=== PATIENT | male | born 1975 | race Caucasian/White ===

== ENCOUNTER 2021-04-05 10:40 | Outpatient (CLI) | payer OTHER, SELFPAY ==
--- NOTE | ~2021-04-05 | XR_ITS ---
XR chest 2V DATE: 04/05/2021 10:57 INDICATION: Confusion, brain dog, weakness TECHNIQUE: PA and lateral views COMPARISON: None FINDINGS: Normal heart size. No hilar or mediastinal enlargement. No pulmonary infiltrate or consolid ation, pleural effusion or pulmonary vascular congestion or pneumothorax. IMPRESSION: No active cardiopulmonary disease Reviewed, dictated and finalized at location A.
== END 2021-04-05 10:41 | disposition home or self-care (01) ==
LOC: CHSIMG 10:45
PROVIDERS: PCP Internal Medicine; Visit Provider Internal Medicine
DX: Z00.00 Encounter for general adult medical examination without abnormal findings (principal); R53.83 Other fatigue
CPT/HCPCS: 71046

== ENCOUNTER 2021-04-06 10:15 | Outpatient (CLI) | payer OTHER, SELFPAY ==
--- NOTE | ~2021-04-06 | MR_ITS ---
EXAMINATION: MR brain/brain stem wo con DATE: 04/06/2021 10:49 INDICATION: Headache. Cognitive change. TECHNIQUE: Magnetic resonance imaging (MRI) of the brain and brainstem was performed without intraven ous contrast. Sequences included sagittal and axial T1-weighted FSE, axial diffusion-weighted FS EPI, axial T2*-weighted GRE, axial T2-weighted FLAIR Propeller, and axial T2-weighted Propeller. Apparent diffusion coefficient (ADC) maps were created. COMPARISON: None. FINDINGS: There is no intracranial hemorrhage, acute infarction, or abnormal intracranial mass lesion . The ventricles are normal in size. There is mild mucosal thickening in left maxillary sinus. The ma stoid air cells are normal. The orbits are normal. IMPRESSION: 1. Normal brain. Reviewed, dictated and finalized at location A. IMPRESSION: 1. Normal brain.
== END 2021-04-06 10:16 | disposition home or self-care (01) ==
LOC: CHSIMG 10:17
PROVIDERS: PCP Internal Medicine; Visit Provider Internal Medicine
DX: R51.9 Headache, unspecified (principal); R41.89 Other symptoms and signs involving cognitive functions and awareness
CPT/HCPCS: 70551

== ENCOUNTER 2024-01-19 06:53 | Emergency (ER) | payer BC, SELFPAY ==
[2024-01-19] VITALS (16 sets, daily range): BP systolic 103–158; BP diastolic 63–98; PULSE 66–86; RESP 8–27; TEMP 36; O2SAT 93–100
--- NOTE | ~2024-01-19 | XR_ITS ---
EXAMINATION: XR chest 2V DATE: 01/19/2024 07:28 INDICATION: Left chest pain. TECHNIQUE: Frontal and lateral views of the chest were obtained on 3 radiographs. COMPARISON: None. FINDINGS: There is no pneumonia, pleural effusion, or pneumothorax. The heart size is normal. IMPRESSION: 1. No acute cardiopulmonary disease. Reviewed, dictated and finalized at location E.
--- NOTE | 2024-01-19 07:10 | ECG_ITS ---
SEE SCANNED COPY FOR CONFIRMED REPORT MTDD
--- NOTE | 2024-01-19 07:13 | ED.CHESTPAIN ---
HPI - Chest Pain General Chief Complaint: Chest Pain Stated Complaint: chest pain Time Seen by Provider: 01/19/24 07:10 Source: patient Mode of arrival: ambulatory Limitations: no limitations History of Present Illness HPI narrative: 48 year old male presents to the Emergency Department complaining of substernal chest pain. Onset when awoke this morning. Pain non-radiating. Denies shortness of breath, nausea or diaphoresis. Patient states he had a similar episode 2 days ago when he was walking around hunting mushrooms. Denies history of cardiac problems. Denies Family History of heart disease. Non-smoker, but chews tobacco. Denies any use of stimulant substances or illicit drugs. MD complaint: chest pain Onset (ago): minute(s) Timing of current episode: episodic Prior episodes: Yes (once 2 days ago) Onset: during rest (today) and during exertion (2 days ago) Pain location: substernal Pain radiation: none Severity: moderate Quality: sharp Relieving factors: nothing Exacerbating factors: nothing (today) and exertion (2 days ago) Treatment prior to arrival: none Risk Factors Coronary artery disease risk factors: none Thoracic aortic dissection risk factors: none Related Data Home Medications Medication Instructions Recorded Confirmed buprenorphine 8 mg-naloxone 2 mg 1 film sublingual BID 01/19/24 01/19/24 sublingual film Allergies Allergy/AdvReac Type Severity Reaction Status Date / Time No Known Allergies Allergy Verified 01/19/24 07:08 Review of Systems Review of Systems: All systems reviewed & are unremarkable except as noted in HPI and below Constitutional: Constitutional: Reports as per HPI and Reports no additional constitutional complaints Eyes: Eyes: Reports as per HPI and Reports no additional eye complaints ENT: Reports system reviewed and no additional complaints, except as documented Cardiovascular: Cardiovascular: Reports as per HPI and Reports chest pain Respiratory: Respiratory: Reports as per HPI, Reports no additional respiratory complaints and Denies dyspnea Gastrointestinal: Gastrointestinal: Reports as per HPI, Reports no additional gastrointestinal complaints, Denies nausea and Denies vomiting Genitourinary: Genitourinary: Reports no additional male genitourinary complaints Musculoskeletal: Musculoskeletal: Reports no additional musculoskeletal complaints Integumentary/Breasts: Skin/Breast: Reports system reviewed and no additional complaints, except as docu Neurologic: Reports system reviewed and no additional complaints, except as documented Psychiatric: Psychiatric: Reports no additional psychiatric complaints Endocrine: Endocrine: Reports no additional endocrine complaints Hematologic/Lymphatic: Hematologic/Lymphatic: Reports no additional hematologic/lymphatic complaints Allergic/Immunologic: Allergic/Immunologic: Reports no additional allergic/immunologic complaints Exam Const: General: healthy appearing, no acute distress and alert Nutritional Appearance: well nourished Orientation/consciousness: patient oriented x3 Limitations: no limitations HENMT: Head: normal to inspection Ears: external ears normal Face/Nose/Sinus: Normal external nose present Face and sinus: normal facial exam Mouth: Yes Normal oral and palatal mucosa present Eyes: Conjunctivae: conjunctivae normal Pupils: Equal, round and reactive pupils present EOM: EOMs intact bilaterally Direct Ophthalmoscopy: no photophobia Neck: Neck: normal visual inspection Chest: Chest palpation & inspection: normal inspection of the chest and no tenderness Resp: Effort & Inspection: normal respiratory effort Auscultation: clear to auscultation bilaterally Cardio: Rate: regular rate Rhythm: regular rhythm Heart sounds: no murmurs Other: PVC's GI: Inspection: non-distended GI Palp: Yes Soft to palpation, No Tenderness to palpation present (GI) and No Guarding due to palpation present (GI) Auscu
[2024-01-19] MEDS: ASPIRIN 81 MG CHEWABLE TABLET 324 MG PO (07:26)
--- NOTE | 2024-01-19 07:30 | PC.NURSE ---
PT RETURNS FROM CT, REPORTS HE HAS BEEN CONSTIPATED FOR THE PAST 4-5 DAYS. PT REPORTS HE IS CURRENTLY PAIN FREE. DAUGHTER IS AT BEDSIDE, PT IS LAUGHING AND TALKING WITH HER. WILL CONTINUE TO MONITOR.
[2024-01-19 07:38] LABS: Basophils Absolute Auto 0.02 K/mm3 (0.00-0.10); Basophils Percent Auto 0.4 % (0.0-1.0); Eosinophils Absolute Auto 0.06 K/mm3 (0.02-0.50); Eosinophils Percent Auto 1.1 % (1.0-6.0); Hematocrit 41.3 % (40.0-54.0); Hemoglobin 13.5 g/dL (14.0-18.0); Immature Granulocyte Absolute 0.01 K/mm3 (0.00-0.00); Immature Granulocyte Percent A 0.2 % (0.0-0.0); Lymphocytes Absolute Auto 2.58 K/mm3 (1.10-4.50); Lymphocytes Percent Auto 47.6 % (18.0-42.0); Mean Corpuscular HGB Conc 32.7 g/dL (32-36); Mean Corpuscular Hemoglobin 28.7 pg (27.0-31.0); Mean Corpuscular Volume 87.9 fL (78.0-102.0); Mean Platelet Volume 11.3 fl (8.7-11.0); Monocytes Absolute Auto 0.48 K/mm3 (0.10-0.90); Monocytes Percent Auto 8.9 % (2.0-11.0); Neutrophils Absolute Auto 2.27 K/mm3 (1.70-7.20); Neutrophils Percent Auto 41.8 % (50.0-70.0); Platelet Count Result 191 K/mm3 (150-420); Red Cell Distribution Width 12.4 % (11.6-14.4); White Blood Count 5.4 K/mm3 (4.8-10.8)
[2024-01-19 07:50] LABS: D Dimer 0.19 mg/L (0.19-0.50)
[2024-01-19 07:54] LABS: Alanine Aminotransferase 28 U/L (16-63); Albumin Level 3.8 g/dL (3.4-5.0); Alkaline Phosphatase 61 U/L (46-116); Anion Gap 5 mmol/L (4-12); Aspartate Amino Transferase 17 U/L (15-37); Bilirubin,Total 0.5 mg/dL (0.00-1.00); Blood Urea Nitrogen 8 mg/dL (7-18); Calcium 8.2 mg/dL (8.5-10.1); Carbon Dioxide 34 mmol/L (21-32); Chloride 104 mmol/L (98-108); Estimated CRCL calculation 99 ml/min; Estimated Glomerular Filt Rate > 60; Glucose 114 mg/dL (70-99); Magnesium 2.1 mg/dL (1.8-2.4); Osmolality Calculated 295 mOsm/kg (285-295); Potassium 4.1 mmol/L (3.5-5.1); Sodium 143 mmol/L (136-145); Total Protein 7.5 g/dL (6.4-8.2); Troponin I 5.5 ng/L (0.00-60.4)
--- NOTE | 2024-01-19 08:20 | PC.NURSE ---
pt is currently resting on stretcher with daughter at bedside. warm blanket provided. pt denies any other episodes of chest pain at this time. vss per monitor. will continue to monitor. erp is notified that all results are completed.
--- NOTE | 2024-01-19 10:16 | PC.NURSE ---
DAUGHTER HAS LEFT, PT IS AWAITING REDRAW OF TROPONIN. ORANGE JUICE PROVIDED. PT DENIES ANY OTHER NEEDS OR COMPLAINTS. PT DENIES ANY MORE CHEST PAIN OCCURANCES. NAD NOTED. WILL CONTINUE TO MONITOR.
[2024-01-19 11:00] LABS: Troponin I 5.9 ng/L (0.00-60.4)
== END 2024-01-19 11:30 | disposition home or self-care (01) ==
PROVIDERS: Emergency Provider Emergency Medicine; PCP Internal Medicine
DX: R07.9 Chest pain, unspecified (principal)
CPT/HCPCS: 36415; 71046; 80053; 83735; 84484; 85025; 85380; 93005; 99284; A9270

== ENCOUNTER 2024-02-01 09:41 | Outpatient (CLI) | payer BC, SELFPAY ==
--- NOTE | 2024-02-01 09:45 | EST_ITS ---
Patient Info Name: Oscar Hobbs Age: 48 years : 1975 Gender: Male Ht: 71 in Wt: 228 lbs BSA: 2.31 m2 HR: 87 bpm BP: 104 / 81 mmHg Heart Rhythm: Sinus Rhythm Technical Quality: Good Exam Date: 02/01/2024 10:12 AM Exam Location: Echo Lab Patient Status: Outpatient Admit Date: 02/01/2024 Staff Ordering Physician: Cristino, Myrna Her APRN Attending Provider: Michelle, Myrna Her APRN Exam Type: CA stress test treadmill Study Info A treadmill exercise stress test was performed. History/Risk Factors Dyslipidemia: Yes Summary 1. 1. Negative Matthew exercise stress test for ischemic ST changes by ECG criteria. 2. 2. Good functional capacity, achieving 12 METs of workload. 3. 3. Hypertensive response to exercise. 4. 4. Appropriate HR response to exercise. 5. 5. Appropriate HR recovery at 1 minute post exercise. 6. 6. No imaging with stress testing. Protocol: Matthew Stress ECG Details Stage: REST Duration (min): 2 min : 37 sec Speed (mph): 0.0 Grade (%): 0 HR (bpm): 87 SBP (mmHg): 104 DBP (mmHg): 81 METS: --- Stage: REST Duration (min): 3 min : 34 sec Speed (mph): 0.0 Grade (%): 0 HR (bpm): 87 SBP (mmHg): 104 DBP (mmHg): 81 METS: --- Stage: STAGE 1 Duration (min): 1 min : 0 sec Speed (mph): 1.7 Grade (%): 10 HR (bpm): 85 SBP (mmHg): 104 DBP (mmHg): 81 METS: --- Stage: STAGE 1 Duration (min): 2 min : 0 sec Speed (mph): 1.7 Grade (%): 10 HR (bpm): 90 SBP (mmHg): 104 DBP (mmHg): 81 METS: --- Stage: STAGE 1 Duration (min): 3 min : 0 sec Speed (mph): 1.7 Grade (%): 10 HR (bpm): 105 SBP (mmHg): 188 DBP (mmHg): 75 METS: --- Stage: STAGE 2 Duration (min): 1 min : 0 sec Speed (mph): 2.5 Grade (%): 12 HR (bpm): 111 SBP (mmHg): 188 DBP (mmHg): 75 METS: --- Stage: STAGE 2 Duration (min): 2 min : 0 sec Speed (mph): 2.5 Grade (%): 12 HR (bpm): 117 SBP (mmHg): 188 DBP (mmHg): 75 METS: --- Stage: STAGE 2 Duration (min): 3 min : 0 sec Speed (mph): 2.5 Grade (%): 12 HR (bpm): 126 SBP (mmHg): 181 DBP (mmHg): 79 METS: --- Stage: STAGE 3 Duration (min): 1 min : 0 sec Speed (mph): 3.4 Grade (%): 14 HR (bpm): 138 SBP (mmHg): 181 DBP (mmHg): 79 METS: --- Stage: STAGE 3 Duration (min): 2 min : 0 sec Speed (mph): 3.4 Grade (%): 14 HR (bpm): 147 SBP (mmHg): 181 DBP (mmHg): 79 METS: --- Stage: STAGE 3 Duration (min): 3 min : 0 sec Speed (mph): 3.4 Grade (%): 14 HR (bpm): 153 SBP (mmHg): 181 DBP (mmHg): 79 METS: --- Stage: STAGE 4 Duration (min): 1 min : 0 sec Speed (mph): 4.2 Grade (%): 16 HR (bpm): 168 SBP (mmHg): 181 DBP (mmHg): 79 METS: --- Stage: STAGE 4 Duration (min): 1 min : 0 sec Speed (mph): 4.2 Grade (%): 16 HR (bpm): 168 SBP (mmHg): 181 DBP (mmHg): 79 METS: --- Stage
== END 2024-02-01 09:42 | disposition home or self-care (01) ==
LOC: CHSCARD 09:42
PROVIDERS: PCP Internal Medicine; Visit Provider Nurse Practitioner Family
DX: R07.9 Chest pain, unspecified (principal)
CPT/HCPCS: 93017

== ENCOUNTER 2024-02-03 08:02 | Outpatient (RCR) | payer BC, SELFPAY ==
--- NOTE | 2024-02-03 12:19 | OPREHPOC ---
Outpatient Therapy Plan of Care This is a Multidisciplinary Plan of Care that may contain components documented by all disciplines (PT, OT, and ST.) PT Problem 1 PT Problem #1 Knowledge Deficit PT Goal 1 Goal The patient will be independent in a home exercise program. Target Visit 4 PT Problem 2 PT Problem #2 Pain PT Goal 1 Goal The patient will report no greater than 2/10 left shoulder pain with daily activities. Target Visit 8 PT Problem 3 PT Problem #3 Impaired Functional Mobil PT Goal 1 Goal 1. The patient will demonstrate 20% or less self perceived disability per the Quick DASH report. 2. The patient will report ability to sleep without left shoulder pain. Target Visit 8 PT Problem 4 PT Problem #4 Impaired Strength PT Goal 1 Goal 1. The patient will demonstrate 4+/5 strength in the left shoulder to improve lifting ability. 2. The patient will demonstrate the ability to lift 20 lbs shoulder to overhead without left shoulder pain. Target Visit 8 PT Problem 5 PT Problem #5 Impaired Range of Motion PT Goal 1 Goal The patient will demonstrate left shoulder AROM equal to the right in all planes to improve ability to perform lifting and reaching necessary for daily and work tasks. Target Visit 8
--- NOTE | 2024-02-03 12:19 | PTOPEVAL1 ---
Assessment and note entered by Tanisha Corral, PT Evaluation Information Assessment Status Evaluation Diagnosis L shoulder pain Onset 01/21/24 Subjective Information Oscar Hobbs reports he thinks he injured his left shoulder when jumping onto a forklift about 3 weeks ago. Approximately one week later, he woke with left chest pain and he thought he was having issues with his heart so he went to the ER. He was cleared with issues with his heart. He followed up with his primary care physician who thought he had a rotator cuff injury and referred him to PT. He has pain in the left armpit and he has difficulty raising his left arm overhead. He also has difficulty washing his back and laying on his left side. 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 He is able to work full duty but has some difficulty completing the heavier labor with his job and using the left arm to close the trailer door. Reported Pain Level Pain Score 7: Self Report Assessment PT Clinical Summary Oscar Hobbs presents with left shoulder pain that has been present for approximately 3 weeks. He may have strained it while working but he is not positive. He notes he woke with left chest pain and after going to the ER for his heart he was cleared and later diagnosed with a rotator cuff strain. He has difficulty reaching overhead, reaching behind his back, and sleeping on the left side leading to deficits in his ability to perform daily and work tasks. He demonstrates decreased and painful left shoulder AROM, decreased left shoulder strength, poor shoulder and upper trunk posture, and positive special tests consistent with shoulder impingement and subscapularis strain/tendonitis. He will benefit from skilled PT to address these limitations. Plan of Care Interventions Electrical Stimulation,Hot Pack/Cold Pack,Manual Therapy,Patient/Caregiver Educati,Therapeutic Activities,Therapeutic Exercise PT Services Indicated Yes Treatment Frequency and 2 times a week for 8 visits Duration These treatments will address the objective and functional deficits as defined above. The patient will be advanced safely and appropriately in order for the patient to progress towards his/her prior level of function. Additional exercises will be introduced and as well as a comprehensive home exercise program upon discharge, if needed, ?to ensure carryover of functional gains achieved in the clinic. This
--- NOTE | 2024-02-23 08:43 | PCPTNOTE ---
pt cancelled not able to make it today.
--- NOTE | 2024-02-25 08:33 | OPREHPOC ---
Outpatient Therapy Plan of Care This is a Multidisciplinary Plan of Care that may contain components documented by all disciplines (PT, OT, and ST.) PT Problem 1 PT Problem #1 Knowledge Deficit PT Goal 1 Goal The patient will be independent in a home exercise program. Target Visit 4 Progress Met PT Problem 2 PT Problem #2 Pain PT Goal 1 Goal The patient will report no greater than 2/10 left shoulder pain with daily activities. Target Visit 8 Progress Met PT Problem 3 PT Problem #3 Impaired Functional Mobil PT Goal 1 Goal 1. The patient will demonstrate 20% or less self perceived disability per the Quick DASH report. 2. The patient will report ability to sleep without left shoulder pain. Target Visit 8 Progress Met PT Problem 4 PT Problem #4 Impaired Strength PT Goal 1 Goal 1. The patient will demonstrate 4+/5 strength in the left shoulder to improve lifting ability. 2. The patient will demonstrate the ability to lift 20 lbs shoulder to overhead without left shoulder pain. Target Visit 8 Progress Met PT Problem 5 PT Problem #5 Impaired Range of Motion PT Goal 1 Goal The patient will demonstrate left shoulder AROM equal to the right in all planes to improve ability to perform lifting and reaching necessary for daily and work tasks. Target Visit 8 Progress Met
--- NOTE | 2024-02-25 08:33 | PTOPDC ---
Assessment and note entered by Tanisha Corral, PT Evaluation Information Assessment Status Discharge Diagnosis L shoulder pain Onset 01/21/24 Subjective Information Oscar reports his left shoulder has been doing much better. He denies pain currently and reports he has not had pain in over a week. He has returned to all previous activities including the heavy labor at his place of employment without pain. Reported Pain Level Pain Score 0: Self Report Assessment PT Clinical Summary Oscar Hobbs has completed 6 skilled PT visits for left shoulder pain. He is reporting completely resolved pain in the left shoulder and has been able to complete all daily and work tasks without pain or difficulty. He objectively demonstrates improved left shoulder AROM, improved left shoulder strength, negative special tests, and improved posture. He has met all PT goals and will be discharged to an independent [facility]. Plan of Care PT Services Indicated No
== END 2024-02-25 10:08 | disposition home or self-care (01) ==
LOC: CHSPT 08:02
PROVIDERS: PCP Internal Medicine; Visit Provider Nurse Practitioner Family
DX: M25.519 Pain in unspecified shoulder (principal)
CPT/HCPCS: 97014; 97110; 97140; 97161; 97750; G0283